=== PATIENT | female | born 2000 | race Two or more races ===

== ENCOUNTER 2021-10-18 01:32 | Emergency (ER) | payer OTHER ==
[~2021-10-18] VITALS: Ht 162.6 cm; Wt 56.7 kg
[2021-10-18] MEDS ORDERED: PRENA1 CHEW TA1.4 MG PO (01:51)
[2021-10-18] MEDS ORDERED: FOLIC ACID20 MG PO (01:52)
== END 2021-10-18 06:26 | disposition home or self-care (01) ==
LOC: ER 01:32
DX: R19.7 Diarrhea, unspecified (principal)

== ENCOUNTER 2021-10-21 17:43 | Outpatient (CLI) | payer OTHER ==
[~2021-10-21] VITALS: Ht 162.6 cm; Wt 57.2 kg
[~2021-10-21 17:43] MED LIST: FOLIC ACID20 MG PO; PRENA1 CHEW TA1.4 MG PO
== END 2021-10-22 08:30 | disposition home or self-care (01) ==
LOC: OBS/DEL 17:43
PROVIDERS: ATTEND Obstetrics & Gynecology
DX: O26.892 Other specified pregnancy related conditions, second trimester (principal); Z3A.27 27 weeks gestation of pregnancy; R10.2 Pelvic and perineal pain

== ENCOUNTER 2023-12-21 11:29 | Outpatient (CLI) | payer OTHER ==
[~2023-12-21 11:29] MED LIST changes: +PRENATAL TABLE1 EAC1 PO
== END 2023-12-21 11:30 | disposition home or self-care (01) ==
LOC: PRENATAL 11:29
PROVIDERS: ATTEND Obstetrics & Gynecology Maternal & Fetal Medicine
DX: O35.3XX0 Maternal care for (suspected) damage to fetus from viral disease in mother, not applicable or unspecified (principal); O44.00 Complete placenta previa NOS or without hemorrhage, unspecified trimester; O36.8199 Decreased fetal movements, unspecified trimester, other fetus; O99.019 Anemia complicating pregnancy, unspecified trimester; Z3A.36 36 weeks gestation of pregnancy

== ENCOUNTER 2024-08-27 17:28 | Emergency (ER) | payer OTHER ==
[~2024-08-27] VITALS: Ht 165.1 cm; Wt 60.3 kg
[2024-08-27] MEDS ORDERED: FAMOTIDINE/PF 20 MG/2 ML VIAL ONE (19:43)
[2024-08-27] MEDS ORDERED: CEFTRIAXONE SODIUM 1,000 MG VIAL ONE (19:43)
[2024-08-27] MEDS ORDERED: CEFTRIAXONE SODIUM 1,000 MG VIAL IV ONE (19:45)
[2024-08-27] MEDS ORDERED: FAMOtidine 10 MG/ML (4ML VIAL) IV ONE (19:45)
[2024-08-27] MEDS ORDERED: 0.9 % SODIUM CHLORIDE 1,000 ML IV ONE (19:45)
[2024-08-27 20:59] LABS: BASO % 0.3 % (0.1-1.2); EOS # 0.05 (0.04-0.54); EOS % 0.4 % (0.7-7.0); HEMATOCRIT 39.3 % (34.1-44.9); HEMOGLOBIN 12.3 g/dL (11.2-15.7); LYMPH # 2.51 (1.18-3.74); LYMPH % 21.8 % (19.3-53.1); MEAN CORPUSCULAR HEMOGLOBIN 23.4 pg (25.6-32.2); MONO # 0.64 (0.24-0.82); MONO % 5.5 % (4.7-12.5); NEUT # 8.27 (1.56-6.13); NEUT % 71.7 % (34.0-71.1); PLATELET COUNT 301 K/uL (163-369); RED BLOOD COUNT 5.26 M/uL (3.93-5.22); RED CELL DISTRIBUTION WIDTH 18.3 % (11.6-14.4)
[2024-08-27 21:28] LABS: ALBUMIN 4.4 gm/dL (3.4-5.0); ALT/SGPT 21 U/L (12-78); ANION GAP 11 (10.0-20.0); AST/SGOT 22 U/L (15-37); BILIRUBIN TOTAL 0.74 mg/dL (0.3-1.2); BLOOD UREA NITROGEN 9 mg/dL (7-18); BUN CREA RATIO 11 (7.0-25.0); CALCIUM 9.8 mg/dL (8.5-10.1); CARBON DIOXIDE 26 mEq/L (21-32); CHLORIDE 108 mmol/L (98-107); CREATININE SERUM 0.82 mg/dL (0.55-1.02); GFR 85.65; GLOBULINA 4.2 G/DL (2.4-3.5); GLUCOSE FASTING 79 mg/dL (65-100); OSMOLALITY SERUM 277 MOSM/KG (275-295); POTASSIUM 4.64 mEq/L (3.5-5.1); SODIUM 140 mmol/L (136-145); TOTAL PROTEIN 8.6 gm/dL (6.4-8.2)
[2024-08-27 21:30] LABS: ALKALINE PHOSPHATASE 95 U/L (50-136)
[2024-08-27 21:34] LABS: PH,URINE 5.5 (5.0-8.0); URINE APPEARANCE Turbid; URINE BILIRRUBIN Negative (NEGATIVE); URINE BLOOD Moderate; URINE COLOR Yellow; URINE GLUCOSE Negative (NEGATIVE); URINE LEUKOCYTE Moderate; URINE NITRATE Positive; URINE UROBILINOGEN 0.2 E.U./dl
[2024-08-27 21:37] LABS: HCG QUANTITATIVE < 1 mUI/mL (1-3)
[2024-08-27 21:38] LABS: URINE CAST 2.83 uL (0.0-1.40); URINE RBC 65.1 uL (0.0-20.8); URINE WBC 2510.8 uL (0.0-23.2)
[2024-08-27 22:22] LABS: URINE BACTERIA > 9821.5 uL (0.0-1933); URINE KETONE 40 (NEGATIVE); URINE PROTEIN 300 (NEGATIVE)
[2024-08-27 22:40] LABS: INR 1.02; PARTIAL THROMBOPLASTIN TIME 29.1 SECONDS (22.0-34.0); PROTHROMBIN TIME 11.1 SECONDS (9.0-11.5)
[2024-08-27] MEDS ORDERED: METHYLPREDNISOLONE SOD SUCC 40 MG VIAL IV ONE (23:30)
[2024-08-27] MEDS ORDERED: DIPHENHYDRAMINE HCL 50 MG/ML VIAL 1ML IV ONE (23:30)
[2024-08-28] MEDS ORDERED: METHYLPREDNISOLONE SOD SUCC 40 MG VIAL ONE (00:31)
[2024-08-28] MEDS ORDERED: DIPHENHYDRAMINE HCL 50 MG/ML VIAL 1ML ONE (00:31)
== END 2024-08-28 02:19 | disposition home or self-care (01) ==
LOC: ER 17:28
PROVIDERS: General Practice
DX: N39.0 Urinary tract infection, site not specified (principal); Z88.6 Allergy status to analgesic agent; Z91.013 Allergy to seafood
CPT/HCPCS: 36415; 74177; Q9965

== ENCOUNTER 2024-08-29 15:52 | Inpatient (IN) | payer OTHER ==
[~2024-08-29] VITALS: Ht 162.6 cm; Wt 68.0 kg
--- NOTE | 2024-08-29 16:02 | NUR ---
PTE ALERTA Y ORIENTADA X3 VERBALIZA QUE TIENE DEBO HERNIA EN LA VEJIGA A LA MISMA LE RECOSTRUYERON LA VEJIGA EN LE 2021. VINO A MOHSEN HACE 1 PIA LA ENVIARON EN LA MADRUGADA DE SALLY CON ANTIBIOTICOS LOS CUALES LE CAUSARON REACION ADVERSA Y NO MEJORA Y LE CAUSARON VOMITO. SE LE MARSHA S/V Y SE UBICA.
[2024-08-29] MEDS ORDERED: FAMOTIDINE/PF 20 MG in 0.9 % SODIUM CHLORIDE 8 ML IV PUSH STA (16:21)
[2024-08-29] MEDS ORDERED: ONDANSETRON HCL 2 MG/ML VIAL IV ONE (16:30)
[2024-08-29] MEDS ORDERED: CEFTRIAXONE SODIUM 2,000 MG VIAL IV ONE (16:30)
[2024-08-29] MEDS ORDERED: CEFTRIAXONE SODIUM 2,000 MG VIAL ONE (16:44)
[2024-08-29] MEDS ORDERED: ONDANSETRON HCL 2 MG/ML VIAL ONE (16:44)
[2024-08-29] MEDS ORDERED: FAMOTIDINE/PF 20 MG/2 ML VIAL ONE (16:44)
--- NOTE | 2024-08-29 17:12 | NUR ---
SE EDUCA A PTE SOBRE [place] MEDICO, SE MARSHA MUESTRAS DE LABORATORIO UTILIZANDO MEDIDAS ASEPTICAS. SE COLOCA H/L TIFFANIE DE EDEMA. SE ADMINISTRAN MEDICAMENTOS NOHELIA ORDEN MEDICA.
[2024-08-29 17:31] LABS: BASO % 0.5 % (0.1-1.2); EOS # 0.05 (0.04-0.54); EOS % 0.4 % (0.7-7.0); HEMATOCRIT 39.6 % (34.1-44.9); HEMOGLOBIN 12.4 g/dL (11.2-15.7); LYMPH # 2.87 (1.18-3.74); LYMPH % 23.3 % (19.3-53.1); MEAN CORPUSCULAR HEMOGLOBIN 23.2 pg (25.6-32.2); MONO # 0.89 (0.24-0.82); MONO % 7.2 % (4.7-12.5); NEUT # 8.44 (1.56-6.13); NEUT % 68.4 % (34.0-71.1); PLATELET COUNT 347 K/uL (163-369); RED BLOOD COUNT 5.34 M/uL (3.93-5.22); RED CELL DISTRIBUTION WIDTH 18.4 % (11.6-14.4)
[2024-08-29 17:54] LABS: ALBUMIN 4.4 gm/dL (3.4-5.0); BILIRUBIN TOTAL 0.46 mg/dL (0.3-1.2); CALCIUM 9.5 mg/dL (8.5-10.1); CREATININE SERUM 1.01 mg/dL (0.55-1.02); GFR 67.34; GLOBULINA 4.2 G/DL (2.4-3.5); POTASSIUM 3.85 mEq/L (3.5-5.1); TOTAL PROTEIN 8.6 gm/dL (6.4-8.2)
[2024-08-29 17:55] LABS: URINE APPEARANCE Clear; URINE BILIRRUBIN Small (NEGATIVE); URINE BLOOD Negative; URINE COLOR Orange; URINE GLUCOSE Negative (NEGATIVE); URINE LEUKOCYTE Small; URINE NITRATE Positive
[2024-08-29 17:57] LABS: URINE BACTERIA 79.5 uL (0.0-1933); URINE CAST 2.06 uL (0.0-1.40); URINE EPITHELIAL CELLS 46.7 uL (0.0-38.8); URINE RBC 13.1 uL (0.0-20.8)
[2024-08-29 18:26] LABS: URINE KETONE 40 (NEGATIVE); URINE PROTEIN 100 (NEGATIVE)
[2024-08-29 18:27] LABS: TYPE CELLS SQUAMOUS; URINE MUCUS SCANT
[2024-08-29 18:28] LABS: URINE YEAST FEW /hpf
[2024-08-29] MEDS ORDERED: FAMOTIDINE/PF 20 MG in 0.9 % SODIUM CHLORIDE 8 ML IV PUSH SCH (20:36)
[2024-08-29] MEDS ORDERED: 0.9 % SODIUM CHLORIDE 1,000 ML IV SCH (20:45)
[2024-08-29] MEDS ORDERED: ONDANSETRON HCL 4 MG in 0.9 % SODIUM CHLORIDE 50 ML IV PRN (20:45)
[2024-08-29] MEDS ORDERED: ACETAMINOPHEN 500 MG GEL..CAP PO PRN (20:45)
[2024-08-30 01:47] VITALS: BP 110/70
[2024-08-30 02:27] LABS: INR 1.05; PARTIAL THROMBOPLASTIN TIME 22.5 SECONDS (22.0-34.0); PROTHROMBIN TIME 11.4 SECONDS (9.0-11.5)
[2024-08-30 02:28] VITALS: BP 123/71; O2SAT 97
[2024-08-30] MEDS ORDERED: CEFTRIAXONE SODIUM 2,000 MG in 0.9 % SODIUM CHLORIDE 100 ML IV SCH (09:00)
[2024-08-30 10:25] VITALS: BP 95/54; O2SAT 98
[2024-08-30] MEDS ORDERED: FAMOTIDINE/PF 20 MG/2 ML VIAL ONE (15:49)
[2024-08-30 16:20] VITALS: BP 116/76; O2SAT 100
[2024-08-30] MEDS ORDERED: MORPHINE SULFATE 2 MG/ML CARTRIDGE IV SCH (18:00)
[2024-08-31 00:35] VITALS: BP 102/60; O2SAT 98
[2024-08-31 06:54] LABS: ALBUMIN 3.8 gm/dL (3.4-5.0); BILIRUBIN TOTAL 0.25 mg/dL (0.3-1.2); CALCIUM 9.2 mg/dL (8.5-10.1); CREATININE SERUM 0.78 mg/dL (0.55-1.02); GFR 90.73; GLOBULINA 3.4 G/DL (2.4-3.5); MAGNESIUM 1.9 mg/dL (1.8-2.4); POTASSIUM 4.09 mEq/L (3.5-5.1); TOTAL PROTEIN 7.2 gm/dL (6.4-8.2)
[2024-08-31 06:59] LABS: C-REACTIVE PROTEIN 0.69 MG/DL (0.00-0.29)
[2024-08-31 07:11] LABS: BASO % 0.6 % (0.1-1.2); EOS # 0.15 (0.04-0.54); EOS % 1.8 % (0.7-7.0); HEMATOCRIT 36.1 % (34.1-44.9); HEMOGLOBIN 11.2 g/dL (11.2-15.7); LYMPH # 2.95 (1.18-3.74); LYMPH % 35.2 % (19.3-53.1); MEAN CORPUSCULAR HEMOGLOBIN 23.5 pg (25.6-32.2); MONO # 0.65 (0.24-0.82); MONO % 7.8 % (4.7-12.5); NEUT # 4.55 (1.56-6.13); NEUT % 54.4 % (34.0-71.1); PLATELET COUNT 238 K/uL (163-369); RED BLOOD COUNT 4.77 M/uL (3.93-5.22); RED CELL DISTRIBUTION WIDTH 17.9 % (11.6-14.4)
[2024-08-31 10:26] VITALS: BP 110/51; O2SAT 98
[2024-08-31] MEDS ORDERED: ONDANSETRON HCL 2 MG/ML VIAL IV PRN (11:00)
[2024-08-31 11:27] LABS: PH,URINE 5.5 (5.0-8.0); URINE APPEARANCE Clear; URINE BILIRRUBIN Negative (NEGATIVE); URINE BLOOD Negative; URINE COLOR Yellow; URINE GLUCOSE Negative (NEGATIVE); URINE KETONE Trace (NEGATIVE); URINE LEUKOCYTE Trace; URINE NITRATE Negative; URINE PROTEIN Trace (NEGATIVE); URINE UROBILINOGEN 0.2 E.U./dl
[2024-08-31 11:32] LABS: URINE EPITHELIAL CELLS 6.6 uL (0.0-38.8); URINE WBC 50.1 uL (0.0-23.2)
[2024-08-31 11:35] LABS: URINE CAST 0.44 uL (0.0-1.40)
[2024-08-31] MEDS ORDERED: ORPHENADRINE CITRATE 30 MG/ML AMPUL IV NR (11:45)
[2024-08-31 17:23] VITALS: BP 115/66
[2024-08-31] MEDS ORDERED: ORPHENADRINE CITRATE 30 MG/ML AMPUL IV SCH (21:00)
[2024-09-01 00:06] VITALS: BP 104/64; O2SAT 98
[2024-09-01 10:04] VITALS: BP 115/72; O2SAT 98
[2024-09-01] MEDS ORDERED: FLUCONAZOLE IN NACL,ISO-OSM 200 MG/100 ML PIGGYBAG IV NR (14:45)
[2024-09-01 16:16] VITALS: BP 96/46; O2SAT 100
[2024-09-01 23:42] VITALS: BP 120/70; O2SAT 98
[2024-09-02] MEDS ORDERED: MORPHINE SULFATE 2 MG/ML CARTRIDGE IV PRN (04:00)
[2024-09-02 04:23] VITALS: BP 117/69; O2SAT 98
[2024-09-02 08:30] VITALS: BP 104/71; O2SAT 96
[2024-09-02] MEDS ORDERED: FLUCONAZOLE IN NACL,ISO-OSM 2 MG/ML ML IV SCH (12:00)
[2024-09-02 16:41] VITALS: BP 111/60
[2024-09-02] MEDS ORDERED: CLOTRIMAZOLE 45 GM TUBE VAG SCH (17:00)
[2024-09-03 00:36] VITALS: BP 110/70; O2SAT 99
[2024-09-03 09:00] LABS: BASO % 0.7 % (0.1-1.2); EOS # 0.28 (0.04-0.54); EOS % 3.1 % (0.7-7.0); HEMATOCRIT 33.6 % (34.1-44.9); HEMOGLOBIN 10.6 g/dL (11.2-15.7); LYMPH # 3.34 (1.18-3.74); LYMPH % 36.7 % (19.3-53.1); MEAN CORPUSCULAR HEMOGLOBIN 24.1 pg (25.6-32.2); MONO # 0.41 (0.24-0.82); MONO % 4.5 % (4.7-12.5); NEUT # 4.97 (1.56-6.13); NEUT % 54.5 % (34.0-71.1); PLATELET COUNT 249 K/uL (163-369); RED BLOOD COUNT 4.39 M/uL (3.93-5.22)
[2024-09-03 09:06] VITALS: BP 118/74; O2SAT 98
[2024-09-03 09:28] LABS: ALBUMIN 3.4 gm/dL (3.4-5.0); BILIRUBIN TOTAL 0.23 mg/dL (0.3-1.2); CALCIUM 8.9 mg/dL (8.5-10.1); CREATININE SERUM 0.75 mg/dL (0.55-1.02); GFR 94.94; GLOBULINA 3.2 G/DL (2.4-3.5); POTASSIUM 4.75 mEq/L (3.5-5.1); TOTAL PROTEIN 6.6 gm/dL (6.4-8.2)
[2024-09-03] MEDS ORDERED: CEFTRIAXONE SODIUM 2,000 MG VIAL ONE (10:28)
[2024-09-03] MEDS ORDERED: ACETAMINOPHEN WITH CODEINE 1 UDTAB TABLET PO STA (14:09)
[2024-09-03] MEDS ORDERED: ACETAMINOPHEN WITH CODEINE 1 UDTAB TABLET PO PRN (14:15)
[2024-09-03 19:10] VITALS: BP 119/65; O2SAT 98
[2024-09-04 00:36] VITALS: BP 119/87; O2SAT 98
[2024-09-04 08:36] VITALS: BP 113/69; O2SAT 97
== END 2024-09-04 17:31 | disposition home or self-care (01) | DRG 690 ==
LOC: ER 15:55 → MEDI 21:36
PROVIDERS: General Practice; Internal Medicine Infectious Disease; ADMIT Student in an Organized Health Care Education/Training Program; ATTEND Student in an Organized Health Care Education/Training Program
PROC: BW4GZZZ Ultrasonography of Pelvic Region (ICD-10-PCS; principal; 2024-08-31)
DX: N39.0 Urinary tract infection, site not specified (principal); R65.10 Systemic inflammatory response syndrome (SIRS) of non-infectious origin without acute organ dysfunction

== ENCOUNTER 2024-10-27 11:13 | Emergency (ER) | payer OTHER ==
[~2024-10-27] VITALS: Ht 170.2 cm; Wt 59.4 kg
[2024-10-27 14:49] LABS: BASO % 0.4 % (0.1-1.2); EOS # 0.08 (0.04-0.54); EOS % 0.8 % (0.7-7.0); LYMPH # 2.70 (1.18-3.74); LYMPH % 27.3 % (19.3-53.1); MEAN PLATELET VOLUME 10.90 fl (9.4-12.4); MONO # 0.61 (0.24-0.82); MONO % 6.2 % (4.7-12.5); NEUT # 6.42 (1.56-6.13); NEUT % 64.8 % (34.0-71.1); RED CELL DISTRIBUTION WIDTH 18.1 % (11.6-14.4)
[2024-10-27 15:12] LABS: BUN CREA RATIO 13.0 (7.0-25.0); CREATININE SERUM 0.8 mg/dL (0.55-1.02); GFR 87.39; GLUCOSE FASTING 89.0 mg/dL (65-100); OSMOLALITY SERUM 280.0 MOSM/KG (275-295)
[2024-10-27] MEDS ORDERED: TRAMADOL HCL 50 MG TABLET PO STA (18:33)
[2024-10-27] MEDS ORDERED: CEFTRIAXONE SODIUM 1,000 MG VIAL IM STA (18:34)
[2024-10-27 19:51] LABS: URINE APPEARANCE Cloudy; URINE BILIRRUBIN Negative (NEGATIVE); URINE BLOOD Moderate; URINE COLOR Yellow; URINE GLUCOSE Negative (NEGATIVE); URINE KETONE Trace (NEGATIVE); URINE LEUKOCYTE Moderate; URINE NITRATE Negative; URINE PROTEIN Trace (NEGATIVE); URINE UROBILINOGEN 1.0 E.U./dl
[2024-10-27 19:55] LABS: URINE EPITHELIAL CELLS 99.0 uL (0.0-38.8); URINE RBC 45.0 uL (0.0-20.8); URINE WBC 1567.7 uL (0.0-23.2)
[2024-10-27 20:30] LABS: TYPE CELLS SQUAMOUS; URINE BACTERIA > 9821.5 uL (0.0-1933); URINE CAST 1.17 uL (0.0-1.40)
== END 2024-10-27 21:09 | disposition home or self-care (01) ==
LOC: ER 11:13
PROVIDERS: General Practice
DX: N39.0 Urinary tract infection, site not specified (principal); Z88.6 Allergy status to analgesic agent; Z91.013 Allergy to seafood

== ENCOUNTER 2024-12-28 09:37 | Emergency (ER) | payer OTHER ==
[~2024-12-28] VITALS: Ht 170.2 cm; Wt 58.1 kg
[2024-12-28] MEDS ORDERED: ONDANSETRON HCL 2 MG/ML VIAL IV ONE (11:15)
[2024-12-28] MEDS ORDERED: 0.9 % SODIUM CHLORIDE 1,000 ML IV ONE (11:15)
[2024-12-28] MEDS ORDERED: FAMOTIDINE/PF 20 MG/2 ML VIAL IV ONE (11:15)
[2024-12-28] MEDS ORDERED: ONDANSETRON HCL 2 MG/ML VIAL ONE (11:42)
[2024-12-28] MEDS ORDERED: FAMOTIDINE/PF 20 MG/2 ML VIAL ONE (11:42)
[2024-12-28 11:57] LABS: BASO % 0.1 % (0.1-1.2); EOS # 0.07 (0.04-0.54); EOS % 0.4 % (0.7-7.0); LYMPH # 1.80 (1.18-3.74); LYMPH % 10.7 % (19.3-53.1); MEAN PLATELET VOLUME 11.90 fl (9.4-12.4); MONO # 0.65 (0.24-0.82); MONO % 3.9 % (4.7-12.5); NEUT # 14.18 (1.56-6.13); NEUT % 84.5 % (34.0-71.1); RED CELL DISTRIBUTION WIDTH 16.0 % (11.6-14.4)
[2024-12-28 12:24] LABS: ALT/SGPT 20.0 U/L (12-78); AST/SGOT 14.0 U/L (15-37); BILIRUBIN TOTAL 0.5 mg/dL (0.3-1.2); BILIRUBIN,CONJUGATED 0.13 mg/dL (0.0-0.2); BUN CREA RATIO 7.0 (7.0-25.0); CREATININE SERUM 0.84 mg/dL (0.55-1.02); GFR 82.61; GLUCOSE FASTING 104.0 mg/dL (65-100); OSMOLALITY SERUM 283.0 MOSM/KG (275-295)
[2024-12-28 12:39] LABS: COVID-19 AG NEGATIVE (NEGATIVE)
[2024-12-28 14:39] LABS: URINE APPEARANCE Turbid; URINE BILIRRUBIN Moderate (NEGATIVE); URINE BLOOD Large; URINE COLOR Orange; URINE GLUCOSE Negative (NEGATIVE); URINE LEUKOCYTE Moderate; URINE NITRATE Negative; URINE UROBILINOGEN 1.0 E.U./dl
[2024-12-28 14:40] LABS: URINE BACTERIA 448.8 uL (0.0-1933); URINE EPITHELIAL CELLS 8.9 uL (0.0-38.8); URINE WBC 627.3 uL (0.0-23.2)
[2024-12-28 14:51] LABS: URINE CAST 0.43 uL (0.0-1.40); URINE KETONE 80 (NEGATIVE); URINE PROTEIN 100 (NEGATIVE); URINE RBC > 10558.9 uL (0.0-20.8)
[2024-12-28] MEDS ORDERED: CEFTRIAXONE SODIUM 2,000 MG VIAL IV ONE (15:45)
[2024-12-28] MEDS ORDERED: CEFTRIAXONE SODIUM 2,000 MG VIAL ONE (17:16)
== END 2024-12-28 23:41 | disposition home or self-care (01) ==
LOC: ER 09:37
PROVIDERS: Emergency Medicine
DX: R11.10 Vomiting, unspecified (principal); R10.9 Unspecified abdominal pain; R30.0 Dysuria; N39.0 Urinary tract infection, site not specified; R50.9 Fever, unspecified; J45.909 Unspecified asthma, uncomplicated; Z20.822 Contact with and (suspected) exposure to COVID-19; Z88.6 Allergy status to analgesic agent; Z91.013 Allergy to seafood